=== PATIENT | male | born 1995 | race Two or more races ===

== ENCOUNTER 2023-09-14 08:06 | Emergency (ER) | payer OTHER, SELFPAY ==
[2023-09-14 08:08] VITALS: BP 122/79
--- NOTE | 2023-09-14 08:29 | ED.GENMED ---
History of Present Illness
General
Chief Complaint: Back Pain
Source: patient
Exam Limitations: none
Time Seen by Provider: 09/14/23 08:14
Nursing documentation reviewed up to this point in time: agreed with
Travel History
Have you had any contact with someone who has COVID-19?: No
Do you have any symptoms of coronavirus? Fever > 100 degrees, chills, cough, shortness of breath, sore throat, loss of taste or smell, muscle aches, or headache?: No
History of Present Illness
History of Present Illness:
Patient is a 28-year-old male who presents to the ER complaining of right-sided back pain that started last night. He denies any injury but has had some discomfort the past couple days but last night it worsened. This morning he has increased pain
worse with any type of position change. He denies any bowel or bladder incontinence. Denies any numbness tinging weakness lower extremities. He does feel it radiating down his right thigh minimally, . He denies any testicular pain. Denies any
urinary frequency urgency or dysuria. No hematuria. No prior history of kidney stone. He has not taken anything for the pain.
Review of Systems
Review of Systems
Allergies reviewed?: Yes
All Other Systems: ROS reviewed and negative except as documented in HPI and ROS
Constitutional: Reports no symptoms
Respiratory: Reports no symptoms
Cardiac: Reports no symptoms
ABD/GI: Reports no symptoms; Denies abdominal pain, nausea or vomiting
: Reports no symptoms; Denies incontinence or bleeding
Musculoskeletal: Reports back pain (right sided low back pain )
Skin: Reports no symptoms
Neurological: Reports no symptoms
Hematologic/Lymphatic: Reports no symptoms
Phy Exam
General Physical Exam
General Presentation: no apparent distress
General age: appears stated age
General Skin: warm and dry
General Habitus: normal
General Mental: alert
General Hydration: appears well hydrated
Neurological Exam
Neurological Exam: alert, oriented x3, normal reflexs and other (Normal distal sensation bilaterally negative straight leg raise normal strength bilaterally lower extremities)
Musculoskeletal Exam
Musculoskeletal Exam: other (No bony midline tenderness tenderness of right lower paralumbar region normal inspection of back no redness or ecchymosis pain with back extension flexion right and left position)
Skin Exam
Skin Exam: normal color and warm/dry
Psychiatric Exam
Psychiatric Exam: normal mood/affect
Course
Orders/Labs/Results
Orders:
Orders
09/14/23 08:24
diazePAM [Valium Injection] 5 mg IM NOW STA
09/14/23 08:25
Acetaminophen [Tylenol] 1,000 mg PO NOW STA
Ketorolac [Toradol] 30 mg IM NOW STA
09/14/23 08:29
UA Reflex to Culture [Urinalysis Reflex To Culture] Urgent
Vital Signs
Initial and Last Documented VS:
Initial Vital Signs
Temp Pulse Resp BP Pulse Ox
98.5 F 83 18 122/79 96
09/14/23 08:08 09/14/23 08:08 09/14/23 08:08 09/14/23 08:08 09/14/23 08:08
Last Documented Vital Signs
Temp Pulse Resp BP Pulse Ox
98.5 F 83 18 122/79 96
09/14/23 08:08 09/14/23 08:08 09/14/23 08:08 09/14/23 08:08 09/14/23 08:08
MDM/Problems Addressed
MDM/Problems Addressed:
Symptoms are consistent musculoskeletal back pain. Patient presents in no acute distress pain is worse with sitting's twisting turning standing in the right back. Normal neurologic exam no bowel or bladder incontinence or leg weakness. He
initially describes some pain rating down his leg but that resolved. Patient was given IM Toradol Tylenol and IM Valium feeling much better. He has no neurological deficits on exam. Will have patient take [id number] ibuprofen every 8 hours
and sent a prescription for Flexeril to patient's pharmacy. Discussed to return if any worsening of symptoms.
*Critical Care Note
Total Time (30-74mins, 75-104mins- exclusive of procedures): Not Applicable
ED Attending Note
-
Portions of this chart may have been created with voice recognition software.� Occasional wrong word or��sound alike� substitutions may have occurred due to the inherent limitations of voice recognition software.
Discharge Plan
Departure
Patient Disposition: Home (Routine Discharge)
Date of Disposition: 09/14/23
Time of Disposition: 09:54
Patient with high blood pressure during this ER visit?: No
Condition: Fair
Covid-19: Not Applicable
Discharge Problem:
Muscle spasm
Instructions: Low Back Pain (DC), Muscle Spasm ED
Prescriptions:
New
cyclobenzaprine 10 mg tablet
10 mg PO TID PRN (Reason: muscle spasm) Qty: 10 0RF
Referrals:
NONE,* [Family Provider] -
Activity Restrictions/Additional Instructions:
Ice the affected area for the first 24 hours 20 minutes at a time several times a day followed by warm moist heat. Ibuprofen [id number] 600 mg every 8 hours with food a prescription for muscle relaxer sent to your pharmacy take as directed.
This medication will cause drowsiness. No driving or drink alcohol taking this medication. Return if any worsening of symptoms if increasing pain numbness tingling weakness in lower extremities or loss of bowel or bladder.
Interventions
Interventions:
*Risk Screen - Suicide Last Done: 09/14/23 08:49
*General Assessment Last Done: 09/14/23 08:49
*Neglect/Abuse Screening Last Done: 09/14/23 08:49
*ED COVID-19 Vaccine History Last Done: 09/14/23 08:49
ED-Musculoskeletal Assessment Last Done: 09/14/23 08:51
Discharge Date and Time
Print Language: INDONESIAN
[2023-09-14 08:49] VITALS: BMI 27.8
[2023-09-14] MEDS: TORADOL 30 MG IM (08:52)
[2023-09-14] MEDS: VALIUM INJECTION 5 MG IM (08:52)
[2023-09-14] MEDS: TYLENOL 1000 MG PO (08:52)
== END 2023-09-14 11:39 | disposition home or self-care (01) ==
LOC: EMR 08:06
PROVIDERS: EMERGENCY PHYSICIAN Emergency Medicine
DX: M62.838 Other muscle spasm (principal)
CPT/HCPCS: 99282; 96372